=== PATIENT | female | born 1955 | race Caucasian/White ===

== ENCOUNTER 2016-08-04 15:54 | Outpatient (RCR) | payer BC ==
[~2016-08-04] VITALS: Ht 165.1 cm; Wt 88.0 kg
[2016-08-04] MEDS: TBO FILGRASTIM 480 MCG/0.8 ML SQ SCH (16:04)
[2016-08-05] MEDS: TBO FILGRASTIM 480 MCG/0.8 ML SQ SCH (16:22)
[2016-08-06] MEDS: TBO FILGRASTIM 480 MCG/0.8 ML SQ SCH (16:42)
[2016-08-07] MEDS: TBO FILGRASTIM 480 MCG/0.8 ML SQ SCH (16:00)
[2016-10-06] MEDS ORDERED: PEGFILGRASTIM 6 MG/0.6 ML SC ONE (16:42)
[2016-10-27] MEDS ORDERED: PEGFILGRASTIM 6 MG/0.6 ML SC ONE (16:00)
[2016-10-27 16:08] VITALS: BP 111/75
== END 2016-11-02 | disposition home or self-care (01) ==
LOC: EUOP 08-05 16:03
PROVIDERS: ATTEND Family Medicine
DX: C54.1 Malignant neoplasm of endometrium (principal); D70.1 Agranulocytosis secondary to cancer chemotherapy
CPT/HCPCS: 96372; J1442; J2505

== ENCOUNTER 2017-02-14 21:16 | Emergency (ER) | payer BC ==
[~2017-02-14] VITALS: Ht 165.1 cm; Wt 92.4 kg
[~2017-02-14 21:16] MED LIST: ALIS150T PO; BENA10TA2 PO; BENA20TA2 PO; DICL75TA2 PO; FLUO20CA42 PO; ONDN4T PO; PRM25T PO; TRM50T PO; UBID100C8 PO
[2017-02-14] MEDS ORDERED: SODIUM CHLORIDE FLUSH 10 ML SYR IV PRN (21:25)
[2017-02-14] MEDS ORDERED: INSULIN REGULAR 1 UNIT/0.01 ML DOSE IV ONE (21:25)
[2017-02-14] MEDS ORDERED: SODIUM CHLORIDE FLUSH 3 ML SYR IV PRN (21:25)
--- NOTE | 2017-02-14 21:37 | NUR ---
STATED NORMALLY TAKES 28 U OF [place] IF BLOOD SUGAR AB0VE 112 WHEN GETS UP. TOOK 60 U TODAY BECAUSE SHE KNEW BLOOD SUGAR WOULD BE UP.
[2017-02-14 21:48] LABS: MEAN CORPUSCULAR HGB CONC 34.1 g/dL (31.0-37.0); PLATELET COUNT 192 10^3uL (150-450); WHITE BLOOD COUNT 10.43 10^3uL (4.0-11.0)
[2017-02-14 21:49] LABS: ALKALINE PHOSPHATASE 113 U/L (38-126); ANION GAP 16.6 MEQ/L (3-15); BUN/CREATININE RATIO 14 (10-20); CALCULATED IONIZED CALCIUM 3.9 mg/dL (3.8-4.6); TOTAL PROTEIN 7.3 g/dL (6.4-8.5)
[2017-02-14 21:56] LABS: MEAN CORPUSCULAR HEMOGLOBIN 35.8 PG (26.0-34.0); MEAN CORPUSCULAR VOLUME 105 FL (80-100)
[2017-02-14 21:59] LABS: ACETONE SERUM Negative (Negative)
[2017-02-14] MEDS ORDERED: LORA10CA PO (22:01)
[2017-02-14] MEDS ORDERED: OXYC1TAB6 PO (22:01)
[2017-02-14] MEDS ORDERED: SENN8.6T10 PO (22:01)
[2017-02-14] MEDS ORDERED: VIT D (22:01)
[2017-02-14] MEDS ORDERED: FOLIC ACID (22:01)
[2017-02-14 22:04] LABS: LYMPHOCYTES # 1.1 #; MONOCYTES # 0.1 #; MONOCYTES % 1 % (3-11); SEGMENTED NEUTROPHILS % 88 % (51-67); TOTAL CELLS COUNTED 100
[2017-02-14 22:07] LABS: ANISOCYTOSIS SLIGHT; POIKILOCYTOSIS SLIGHT; POLYCHROMASIA SLIGHT; RBC MORPH SEE REFERENCE (NORMAL)
[2017-02-14 22:12] LABS: BILIRUBIN,URINE Negative (Negative); CLARITY,URINE Clear; COLOR,URINE Yellow; GLUCOSE, URINE (UA) 2+ (Negative); LEUKOCYTE ESTERASE ,URINE Negative (Negative); PH,URINE 5.5 (5.0 - 8.0); UROBILINOGEN,URINE 0.2 mg/dL (0.2-1.0)
--- NOTE | 2017-02-14 22:24 | NUR ---
PT STATED HER H/A IS RESOLVING
[2017-02-15 00:06] VITALS: BP 109/61
== END 2017-02-15 00:24 | disposition home or self-care (01) ==
LOC: ED 21:17
DX: T38.0X5A Adverse effect of glucocorticoids and synthetic analogues, initial encounter (principal); R73.02 Impaired glucose tolerance (oral); G44.40 Drug-induced headache, not elsewhere classified, not intractable
CPT/HCPCS: 36415; 80053; 81003; 82009; 82803; 85025; 96360; 96361; 99284; J1815; J7030; 99283